=== PATIENT | male | born 1955 | race Caucasian/White ===

== ENCOUNTER 2021-02-24 00:45 | Inpatient (IN) ==
[2021-02-24] MEDS ORDERED: OPTIRAY 320 125ml IV ONE (01:22)
[2021-02-24 01:29] LABS: Basophils # (auto) 0.03 K/uL (0-0.2); Basophils % (auto) 0.2 %; Eosinophils # (auto) 0.22 K/uL (0-0.5); Eosinophils % (auto) 1.8 %; Hematocrit (blood only) 44.5 % (42-52); Hemoglobin 14.7 g/dL (14.0-18.0); Immature Granulocytes # (auto) 0.03 K/uL (0.00-0.02); Immature Granulocytes % (auto) 0.2 %; Lymphocytes # (auto) 1.65 K/uL (1.2-3.4); Lymphocytes % (auto) 13.7 %; Mean Corpuscular Hemoglobin 30.1 pg (25-34); Mean Platelet Volume 9.4 fL (7.4-10.4); Monocytes # (auto) 1.02 K/uL (0.11-0.59); Monocytes % (auto) 8.5 %; Neutrophils # (auto) 9.11 K/uL (1.4-6.5); Neutrophils % (auto) 75.6 %; Platelet Count 278 K/uL (130-400); RDW Standard Deviation 46.3 fL (36.4-46.3); Red Blood Count 4.89 M/uL (4.7-6.1); White Blood Count 12.06 K/uL (4.8-10.8)
[2021-02-24 01:42] LABS: Partial Thromboplastin Ratio 1.1; Partial Thromboplastin Time 29.1 Seconds (21.0-31.0); Prothrombin Time 9.9 Seconds (9.0-12.0)
[2021-02-24 01:46] LABS: Albumin Level 3.4 gm/dl (3.4-5.0); BUN Creatinine Ratio 18.4 (10-20); Est GFR (African American) 52.9 ml/min; Est GFR (Non-African American) 45.6 ml/min; Magnesium 2.2 mg/dl (1.8-2.4); Potassium 4.7 mmol/L (3.5-5.1)
[2021-02-24 01:55] LABS: Globulin 3.4 gm/dl (2.5-4.0); Total Protein 6.8 gm/dl (6.4-8.2); Troponin I 0.184 ng/ml (0-0.045)
[2021-02-24] MEDS ORDERED: ASPIRIN 300 MG SUPP PR ONE (02:24)
[2021-02-24] MEDS ORDERED: SODIUM CHLORIDE 0.9% 500 ML IV SCH (02:30)
[2021-02-24 03:15] LABS: Thyroid Stimulating Hormone 1.35 uIu/ml (0.300-4.500)
[2021-02-24] MEDS ORDERED: ALBUT/IPRATROP 3MG/0.5MG NEB 3 ML VIAL NEB STA ×2 (03:20→06:27)
--- NOTE | 2021-02-24 03:25 | History & Physical Report ---
Date of Service February 24, 2021 Assessment & Plan (1) Acute CVA (cerebrovascular accident): Plan: Left MCA ischemic stroke Patient not a candidate for TPA as per ER provider conversation with [facility] stroke specialist construction tech (Dr. Duong). HTN, elevated secondary to above hx medication noncompliance Past history ACEI intake as per records LUC status post surgery/CPAP noncompliance ARF, rhabdomyolysis secondary to immobility post fall GERD as per records ongoing tobacco abuse Medical telemetry Neurochecks Aspirin for secondary stroke prevention MRI brain, TTE for additional stroke work-up Neurology consult Re: CVA Permissive hypertension for now Baseline UA, monitor creatinine/CPK response to IVF Check lipid profile Initiate statin once rhabdomyolysis resolved Nicotine patch as needed PT OT eval DVT prophylaxis. Heparin subcu Full code as per family. Patient son requesting updates from providers. Mr. Sukhdev Nogueira, contact #[phone]. Text document was generated using farmaciamark[employer] voice recognition software. It may contain grammatical or spelling errors. Kindly contact undersigned for clarification of any documentation item in question. History of Present Illness Chief Complaint: Stroke as per records Primary Care Provider: NO PCP History obtained from patient, family, and records. Unable to obtain history from patient secondary to dysarthria/aphasia Medical history significant for HTN, hyperlipidemia, GERD, LUC status post surgery/CPAP noncompliance, ongoing tobacco abuse, medication noncompliance. Patient has not been to a family doctor or taking home medications for a number of years now as per family. Patient found by son at home around 11 PM last night on the floor with slurred speech, right facial droop and right side paralysis. Last time patient was known to be well was 8 AM, 02/22 when patient's son spoke to him over the phone. No concerns at that time as per family. No prior episodes as per family. Aspirin per rectum administered at the ER. Medical History as above Surgical History : Back surgery, ankle surgery, vasectomy, uvulopalatopharyngoplasty, vasectomy Family History : Stroke, heart disease, A. 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 Allergies Allergy/AdvReac Type Severity Reaction Status Date / Time No Known Allergies Allergy Verified 02/24/21 02:08 Home Medications Medication Instructions Recorded Confirmed Type naproxen sodium 220 mg tablet 220 - 440 mg PO DIRECTED PRN 02/24/21 02/24/21 History (Aleladi) Past Med/Surg History Social History Smoking Status: Current every day smoker Tobacco Type: Cigarettes Cigarettes Per Day: 10-20; Hx Alcohol Use: Yes Alcohol type: beer and hard liquor Hx Substance Use: No Preferred Language: [place] Islander Communication Ability: Impaired Financial Assistant Required: No Beliefs That Will Affect Care: None marital status: Single Current Living Situation: Alone Current Living Situation Comment: son sometimes stays with him Other Information That Helps Us Care for You: No Feels Safe at Home: Yes Safety Concerns: Feels Safe At This Time Assistive Devices: Glasses and Hearing Aid - Left Review of Systems Review of Systems: Could not be reliably obtained Physical Exam Physical Exam: GENERAL: uncomfortable, audible expiratory wheezes, restless, obese, aphasic, dysarthric, no respiratory distress SKIN: Normal color, warm HEENT: Alopecia, pink palpebral conjunctivae, no ptosis, right facial droop, dry buccal mucosa NECK : Supple, short neck, no tenderness CHEST : Decreased breath sounds, expiratory wheezes, no tenderness HEART : RRR, no obvious murmurs ABDOMEN: Some distention, nontender EXTREMITIES : Minimal LE swelling, no LE tenderness, no other conspicuous deformities noted NEUROLOGIC : Coherent, aphasic, right facial droop, dysarthric, right hemiplegia Results & Data Results & Data ([facility]) Vital Signs (Past 12 Hours) Vital Signs Temp Pulse Pulse Resp BP BP Pulse Ox 02/24/21 02:19 88 18 166/95 H 94 02/24/21 01:34 91 H 18 150/77 H 96 02/24/21 00:51 37.4 C 88 16 157/90 H 95 Laboratory Results Laboratory Results WBC 12.06 K/uL (4.8-10.8) H 02/24/21 01:17 RBC 4.89 M/uL (4.7-6.1) 02/24/21 01:17 Hgb 14.7 g/dL (14.0-18.0) 02/24/21 01:17 Hct 44.5 % (42-52) 02/24/21 01:17 MCV 91.0 fL (80-100) 02/24/21 01:17 MCH 30.1 pg (25-34) 02/24/21 01:17 MCHC 33.0 g/dL (32-36) 02/24/21 01:17 RDW Std Deviation 46.3 fL (36.4-46.3) 02/24/21 01:17 RDW Coeff of Serenity 14.0 % (11.5-14.5) 02/24/21 01:17 Plt Count 278 K/uL (130-400) 02/24/21 01:17 MPV 9.4 fL (7.4-10.4) 02/24/21 01:17 Immature Gran % (Auto) 0.2 % 02/24/21 01:17 Neut % (Auto) 75.6 % 02/24/21 01:17 Lymph % (Auto) 13.7 % 02/24/21 01:17 [place] % (Auto) 8.5 % 02/24/21 01:17 Eos % (Auto) 1.8 % 02/24/21 01:17 Baso % (Auto) 0.2 % 02/24/21 01:17 Neut # (Auto) 9.11 K/uL (1.4-6.5) H 02/24/21 01:17 Lymph # (Auto) 1.65 K/uL (1.2-3.4) 02/24/21 01:17 [place] # (Auto) 1.02 K/uL (0.11-0.59) H 02/24/21 01:17 Eos # (Auto) 0.22 K/uL (0-0.5) 02/24/21 01:17 Baso # (Auto) 0.03 K/uL (0-0.2) 02/24/21 01:17 Immature Gran # (Auto) 0.03 K/uL (0.00-0.02) H 02/24/21 01:17 PT 9.9 Seconds (9.0-12.0) 02/24/21 01:17 INR 1.0 (0.9-1.1) 02/24/21 01:17 APTT 29.1 Seconds (21.0-31.0) 02/24/21 01:17 PTT Ratio 1.1 02/24/21 01:17 Sodium 135 mmol/L (136-145) L 02/24/21 01:17 Potassium 4.7 mmol/L (3.5-5.1) 02/24/21 01:17 Chloride 108 mmol/L (98-107) H 02/24/21 01:17 Carbon Dioxide 25 mmol/L (21-32) 02/24/21 01:17 Anion Gap 2.0 (3-11) L 02/24/21 01:17 BUN 29 mg/dl (7-18) H 02/24/21 01:17 Creatinine 1.55 mg/dl (0.6-1.4) H 02/24/21 01:17 Est Cr Clr Drug Dosing 55.0 ml/min 02/24/21 01:17 Est GFR ( Amer) 52.9 ml/min 02/24/21 01:17 Est GFR (Non-Af Amer) 45.6 ml/min 02/24/21 01:17 BUN/Creatinine Ratio 18.4 (10-20) 02/24/21 01:17 Glucose 99 mg/dl (70-99) 02/24/21 01:17 Calcium 9.0 mg/dl (8.5-10.1) 02/24/21 01:17 Magnesium 2.2 mg/dl (1.8-2.4) 02/24/21 01:17 Total Bilirubin 1.0 mg/dl (0.2-1) 02/24/21 01:17 AST 41 U/L (15-37) H 02/24/21 01:17 ALT 29 U/L (12-78) 02/24/21 01:17 Alkaline Phosphatase 86 U/L (45-117) 02/24/21 01:17 Total Creatine Kinase 1577 U/L (39-308) H 02/24/21 01:17 Troponin I 0.184 ng/ml (0-0.045) H* 02/24/21 01:17 NT-Pro-B Natriuret Pep 460 pg/ml (0-900) 02/24/21 01:17 Total Protein 6.8 gm/dl (6.4-8.2) 02/24/21 01:17 Albumin 3.4 gm/dl (3.4-5.0) 02/24/21 01:17 Globulin 3.4 gm/dl (2.5-4.0) 02/24/21 01:17 Albumin/Globulin Ratio 1.0 (0.9-2) 02/24/21 01:17 TSH 1.350 uIu/ml (0.300-4.500) 02/24/21 01:17 Blood Type O Negative 02/24/21 01:17 Antibody Screen NEGATIVE 02/24/21 01:[address] head initial read Left temporal insular, frontal and parietal acute nonhemorrhagic infarct in the left middle cerebral artery vascular distribution. Asymmetric hyperdense left middle cerebral artery suspicious for thrombus. No acute intracranial hemorrhage or abnormal extra-axial fluid collection. Ventricles and sulci normal in size for age.No midline shift. No paranasal sinus air-fluid level. No fracture. CTA head initial read Filling defect from the proximal to distal M1 segment of the left middle cerebral artery and multiple proximal left middle cerebral artery trifurcation branches with partial distal runoff, consistent with a near complete occluding acute thrombus. Trace flow within the distal cervical through supraclinoid left internal carotid artery compatible with a critical near complete stenosis. Underlying atherosclerotic aortic plaque in the cavernous segment of the left internal carotid artery. Minimal flow in the A1 segment left anterior cerebral artery. Remainder of the left anterior cerebral artery is supplied through a patent anterior communicating artery. Patent left posterior commuting artery contributes to flow in the proximal supraclinoid and proximal M1 segment of the left middle cerebral artery. Atherosclerotic aortic plaque of the cavernous internal carotid artery with mod erate stenosis. Intact flow in the right anterior and middle cerebral arteries. Posterior circulation is unremarkable. No evidence for aneurysm or basilar malformation. CTA Neck initial read: Left carotid bulb plaque with critical near complete stenosis. String-like contrast material throughout the remainder of the cervical left internal carotid artery to the skull base. Mild to moderate plaque in the left common carotid artery. Plaque with moderate stenosis of the right carotid bulb with intact distal runoff. Mild atherosclerotic carotid plaque of the aortic arch. Patent bilateral vert ebral arteries without significant stenosis. Degenerative changes of the cervical spine. Chest x-ray as per my interpretation: Cardiomegaly, congestion EKG as per my interpretation : Rate 90, NSR, normal axis, T wave flattening inferior leads
[2021-02-24 04:11] LABS: Appearance Urine Clear (Clear); Bacteria Urine Automated Negative (Negative); Bilirubin Urine Negative (Negative); Blood Urine 1+ (Negative); Cast Urine Automated 0 /lpf (0-5); Color Urine Yellow; Glucose Urine UA Trace (Negative); Ketones Urine 1+ (Negative); Leukocyte Esterase Urine Negative (Negative); Nitrite Urine Negative (Negative); Protein Urine Trace (Negative); RBC Urine Automated 0-4 /hpf (0-4); Specific Gravity Urine > 1.045 (1.000-1.030); Urobilinogen Urine Negative (Negative)
[2021-02-24] MEDS: D5W AND LACTATED RINGERS 1,000 ML IV SCH ×2 (04:51→15:54)
[2021-02-24] MEDS ORDERED: XOPENEX/ATROVENT 1.25mg/0.5MG NEB COMBO NEB PRN (05:04)
[2021-02-24] MEDS ORDERED: IPRATROPIUM BROMIDE NEB SOLN 0.02% 2.5 ML VIAL INH PRN (05:04)
[2021-02-24] MEDS ORDERED: ACETAMINOPHEN 1,000 MG/100 ML VIAL IV PRN (05:04)
[2021-02-24] MEDS ORDERED: PROMETHAZINE HCL 12.5 MG in SODIUM CHLORIDE 0.9% 50 ML IV PRN (05:04)
[2021-02-24] MEDS ORDERED: PHARMACIST DISCHARGE MED REC CONSULT PRN (05:04)
[2021-02-24] MEDS ORDERED: LEVALBUTEROL 1.25MG/0.5ML NEB INH PRN (05:04)
--- NOTE | 2021-02-24 05:40 | Emergency Department Note ---
Impression & Plan Thrombotic stroke involving middle cerebral artery, Non-ST elevation MT (NSTEMI), Rhabdomyolysis Admit to the [facility] ED Provider Note NAME: KAVON POLO AGE: 66 SEX: M ARRIVES VIA: Ambulance INFORMANT: EMS; the patient's son ED PROVIDER(S): Katya Sorenson DO CHIEF COMPLAINT: Altered mental status PLAN: Disposition: Admit to the [facility] Condition: Good MEDICAL DECISION MAKING: This is a 66-year-old male patient with no significant past medical history who presents to the emergency department with strokelike symptoms with an unknown last known well time. The patient was found on the floor by his family. CT scan of the brain reveals evidence of a large MCA stroke on the left. This is left him with paralysis on the right and a right-sided facial droop. Patient has incomprehensible speech. Patient would not be a candidate for TPA/TNKase because of his time of presentation being greater than 24 hours from last known well time. I discussed the case with the telestroke neurologist at [facility] and they made multiple recommendations for treatment here at [facility]. Patient remained hemodynamically stable. The patient has an elevated total CPK consistent with rhabdomyolysis most likely from being on the floor for an extended period of time. He is being treated with IV crystalloid therapy. I discussed the case with the [facility] and they will evaluate for further management. Triage Nursing notes reviewed and agree with them. Additional history obtained from the patient's sons who are at the bedside Vital Signs: reviewed and unremarkable Differential diagnosis: Intracranial hemorrhage, hypoglycemia, ischemic stroke, ER treatment provided: IV normal saline Rectal aspirin Diagnostics interpreted by me: ECG: Normal sinus rhythm at [address] segment elevation or signs of ischemia. There is no ectopy. Cardiac Monitoring: Normal sinus rhythm at 78 Laboratory studies: See below Imaging studies: CT head: Left temporal insular, frontal and parietal acute nonhemorrhagic infarct in the left middle cerebral artery vascular distribution. Asymmetric hyperdense left middle cerebral artery suspicious for thrombus. No acute intracranial hemorrhage or abnormal extra-axial fluid collection. Ventricles and sulci normal in size for age. No midline shift. No paranasal sinus air-fluid level. No fracture. CTA head: Filling defect from the proximal to distal M1 segment of the left middle cerebral artery and multiple proximal left middle cerebral artery trifurcation branches with partial distal runoff, consistent with a near complete occluding acute thrombus. Trace flow within the distal cervical through supraclinoid left internal carotid artery compatible with a critical near complete stenosis. Underlying atherosclerotic aortic plaque in the cavernous segment of the left internal carotid artery. Minimal flow in the A1 segment left anterior cerebral artery. Remainder of the left anterior cerebral artery is supplied through a patent anterior communicating artery. Patent left posterior commuting artery contributes to flow in the proximal supraclinoid and proximal M1 segment of the left middle cerebral artery. Atherosclerotic aortic plaque of the cavernous internal carotid artery with moderate stenosis. Intact flow in the right anterior and middle cerebral arteries. Posterior circulation is unremarkable. No evidence for aneurysm or basilar malformation. CTA Neck: Left carotid bulb plaque with critical near complete stenosis. String-like contrast material throughout the remainder of the cervical left internal carotid artery to the skull base. Mild to moderate plaque in the left common carotid artery. Plaque with moderate stenosis of the right carotid bulb with intact distal runoff. Mild atherosclerotic carotid plaque of the aortic arch. Patent bilateral vertebral arteries without significant stenosis. Degenerative changes of the cervical spine HPI: 66/M arrives for evaluation of stroke symptoms. The patient was found on the floor this evening by his family. It appeared that he had urinated himself there and may have been there since sometime this morning as he was still in his pajamns. The family had last spoken with him greater than 24 hours ago. Patient has no specific past medical history. He does take Aleve for chronic back pain. The patient has had a previous spinal surgery ROS: See above HPI for pertinent positives & negatives. A total of 10 systems reviewed and were otherwise negative. PAST MEDICAL HISTORY:See Below PAST SURGICAL HISTORY:Spinal surgery FAMILY HISTORY:See Below SOCIAL HISTORY:The patient lives with one of his sons HOME MEDICATIONS:See Below ALLERGIES:See Below VITALS:See Below PHYSICAL EXAMINATION: HEENT: Head - normocephalic and atraumatic. Pupils are equal, round, and reactive but sluggishly reactive light. Extraocular eye muscles are intact and sclera are anicteric. Nose - moist nasal mucosa without discharge. Mouth - moist buccal mucosa. Oropharynx is nonerythematous and there is no tonsillar exudate or edema noted. Neck: Supple; no JVD, nuchal rigidity, cervical lymphadenopathy, or auscultated bruits. Heart: Regular rate and rhythm. There is a normal S1 and S2 with no murmurs, clicks, or gallops appreciated. Lungs: Clear to auscultation bilaterally with no wheezes, rales, or rhonchi. Abdomen: Soft, completely nontender, nondistended, with good bowel sounds. There are no palpable pulsatile masses or hepatosplenomegaly. There is no guarding, rigidity, or rebound noted. Extremities: No evidence of cyanosis, clubbing, or edema. There are easily palpable peripheral pulses. Neuro:The patient is awake but with significantly slurred speech. The right arm and right leg seem flaccid although the patient will withdraw the right lower extremity with noxious stimuli to the right foot. ED COURSE: The patient went directly to CT scan for CT of head and CTA head and neck from EMS. The patient was evaluated in room B1 on return from CAT scan A complete history and physical was performed. Much of the history is obtained from the patient's son who was at the bedside. Stroke evaluation was performed. An order was placed for continuous cardiac monitoring. Patient was in normal sinus rhythm at a rate of 88. The patient was started on a normal saline drip. A twelve-lead EKG was obtained. I reviewed the case with the [facility] telestroke neurologist. They did not believe that the patient met criteria for transfer to a tertiary care center. They did recommend the patient receive rectal aspirin and suggested that the patient blood pressure remain managed less than 200/100. They also suggested considering placing an NG tube for administering's oral statins. Recommended keeping the patient's magnesium level greater than 2. I discussed these recommendations with the admitting physician-Dr. Ray. I kept the patient's son abreast of the situation. I have personally spent greater than 65 minutes of critical care time in the direct management of this patient. This includes bedside care, interpretation of diagnostic studies, and testing, discussion with consultants, patient, and family members, and other required patient management activities. This 65 minutes is in excess of all separately billable procedures. Katya Sorenson DO Past Med/Surg History Social History Smoking Status: Current every day smoker Tobacco Type: Cigarettes Cigarettes Per Day: 10-20; Hx Alcohol Use: Yes Alcohol type: beer and hard liquor Hx Substance Use: No Preferred Language: Cymraes Communication Ability: Impaired Criminal Justice Social Worker Required: No Beliefs That Will Affect Care: None marital status: Single Current Living Situation: Alone Current Living Situation Comment: son sometimes stays with him Feels Safe at Home: Yes Assistive Devices: Glasses and Hearing Aid - Left Allergies Allergies Allergy/AdvReac Type Severity Reaction Status Date / Time No Known Allergies Allergy Verified 02/24/21 02:08 Home Meds Home Medications Medication Instructions Recorded Confirmed naproxen sodium 220 mg tablet 220 - 440 mg PO DIRECTED PRN 02/24/21 02/24/21 (Aleve) Results & Data (ED) Vital Signs Vital Signs - 24 hr 02/24/21 00:51 02/24/21 01:34 02/24/21 02:19 Temperature 37.4 C Temperature Source Oral Pulse Rate 88 Pulse Rate [Left Apical] 91 H 88 Respiratory Rate 16 18 18 Respiratory Effort / Characteristics Non-Labored Spontaneous Non-Labored Spontaneous Non-Labored Spontaneous Respiratory Depth Normal Normal Normal Respiratory Pattern Regular Regular Regular Blood Pressure 157/90 H Blood Pressure [Right Arm] 150/77 H 166/95 H Blood Pressure Mean 112 Blood Pressure Mean [Right Arm] 101 118 Blood Pressure Position Lying Blood Pressure Position [Right Arm] Lying Lying Pulse Oximetry 95 96 94 Oxygen Delivery Method Room Air Room Air Room Air Sepsis Recent Fever Within 48 Hours No Sepsis New/Unexplained Change in Mental Status N/A Sepsis Action Taken by Nursing No Action Required 02/24/21 03:00 Temperature Temperature Source Pulse Rate 99 H Pulse Rate [Left Apical] Respiratory Rate 18 Respiratory Effort / Characteristics Respiratory Depth Respiratory Pattern Blood Pressure Blood Pressure [Right Arm] Blood Pressure Mean Blood Pressure Mean [Right Arm] Blood Pressure Position Blood Pressure Position [Right Arm] Pulse Oximetry 94 Oxygen Delivery Method Room Air Sepsis Recent Fever Within 48 Hours Sepsis New/Unexplained Change in Mental Status Sepsis Action Taken by Nursing Laboratory Data Result diagrams: 02/24/21 01:17 02/24/21 01:17 Lab Results 02/24/21 02/24/21 02/24/21 Range/Units 01:17 01:17 01:17 WBC 12.06 H (4.8-10.8) K/uL RBC 4.89 (4.7-6.1) M/uL Hgb 14.7 (14.0-18.0) g/dL Hct 44.5 (42-52) % MCV 91.0 (80-100) fL MCH 30.1 (25-34) pg MCHC 33.0 (32-36) g/dL RDW Std Deviation 46.3 (36.4-46.3) fL RDW Coeff of Serenity 14.0 (11.5-14.5) % Plt Count 278 (130-400) K/uL MPV 9.4 (7.4-10.4) fL Immature Gran % (Auto) 0.2 % Neut % (Auto) 75.6 % Lymph % (Auto) 13.7 % [place] % (Auto) 8.5 % Eos % (Auto) 1.8 % Baso % (Auto) 0.2 % Neut # (Auto) 9.11 H (1.4-6.5) K/uL Lymph # (Auto) 1.65 (1.2-3.4) K/uL [place] # (Auto) 1.02 H (0.11-0.59) K/uL Eos # (Auto) 0.22 (0-0.5) K/uL Baso # (Auto) 0.03 (0-0.2) K/uL Immature Gran # (Auto) 0.03 H (0.00-0.02) K/uL PT 9.9 (9.0-12.0) Seconds INR 1.0 (0.9-1.1) APTT 29.1 (21.0-31.0) Seconds PTT Ratio 1.1 Sodium (136-145) mmol/L Potassium (3.5-5.1) mmol/L Chloride (98-107) mmol/L Carbon Dioxide (21-32) mmol/L Anion Gap (3-11) BUN (7-18) mg/dl Creatinine (0.6-1.4) mg/dl Est Cr Clr Drug Dosing ml/min Est GFR ( Amer) ml/min Est GFR (Non-Af Amer) ml/min BUN/Creatinine Ratio (10-20) Glucose (70-99) mg/dl Calcium (8.5-10.1) mg/dl Magnesium (1.8-2.4) mg/dl Total Bilirubin (0.2-1) mg/dl AST (15-37) U/L ALT (12-78) U/L Alkaline Phosphatase (45-117) U/L Total Creatine Kinase (39-308) U/L Troponin I (0-0.045) ng/ml NT-Pro-B Natriuret Pep (0-900) pg/ml Total Protein (6.4-8.2) gm/dl Albumin (3.4-5.0) gm/dl Globulin (2.5-4.0) gm/dl Albumin/Globulin Ratio (0.9-2) TSH (0.300-4.500) uIu/ml Blood Type O Negative Antibody Screen NEGATIVE 02/24/21 Range/Units 01:17 WBC (4.8-10.8) K/uL RBC (4.7-6.1) M/uL Hgb (14.0-18.0) g/dL Hct (42-52) % MCV (80-100) fL MCH (25-34) pg MCHC (32-36) g/dL RDW Std Deviation (36.4-46.3) fL RDW Coeff of Serenity (11.5-14.5) % Plt Count (130-400) K/uL MPV (7.4-10.4) fL Immature Gran % (Auto) % Neut % (Auto) % Lymph % (Auto) % [place] % (Auto) % Eos % (Auto) % Baso % (Auto) % Neut # (Auto) (1.4-6.5) K/uL Lymph # (Auto) (1.2-3.4) K/uL [place] # (Auto) (0.11-0.59) K/uL Eos # (Auto) (0-0.5) K/uL Baso # (Auto) (0-0.2) K/uL Immature Gran # (Auto) (0.00-0.02) K/uL PT (9.0-12.0) Seconds INR (0.9-1.1) APTT (21.0-31.0) Seconds PTT Ratio Sodium 135 L (136-145) mmol/L Potassium 4.7 (3.5-5.1) mmol/L Chloride 108 H (98-107) mmol/L Carbon Dioxide 25 (21-32) mmol/L Anion Gap 2.0 L (3-11) BUN 29 H (7-18) mg/dl Creatinine 1.55 H (0.6-1.4) mg/dl Est Cr Clr Drug Dosing 55.0 ml/min Est GFR ( Amer) 52.9 ml/min Est GFR (Non-Af Amer) 45.6 ml/min BUN/Creatinine Ratio 18.4 (10-20) Glucose 99 (70-99) mg/dl Calcium 9.0 (8.5-10.1) mg/dl Magnesium 2.2 (1.8-2.4) mg/dl Total Bilirubin 1.0 (0.2-1) mg/dl AST 41 H (15-37) U/L ALT 29 (12-78) U/L Alkaline Phosphatase 86 (45-117) U/L Total Creatine Kinase 1577 H (39-308) U/L Troponin I 0.184 H* (0-0.045) ng/ml NT-Pro-B Natriuret Pep 460 (0-900) pg/ml Total Protein 6.8 (6.4-8.2) gm/dl Albumin 3.4 (3.4-5.0) gm/dl Globulin 3.4 (2.5-4.0) gm/dl Albumin/Globulin Ratio 1.0 (0.9-2) TSH 1.350 (0.300-4.500) uIu/ml Blood Type Antibody Screen Administered Medications Discontinued Medications Albuterol (Albut/Ipratrop 3mg/0.5mg Neb 3 Ml Vial) 3 ml NEB NOW STA Stop: 02/24/21 03:21 Last Admin: 02/24/21 04:09 Dose: 3 ml Documented by: [id number] Albuterol (Albut/Ipratrop 3mg/0.5mg Neb 3 Ml Vial) 3 ml NEB NOW STA Stop: 02/24/21 06:28 Last Admin: 02/24/21 10:48 Dose: Not Given Documented by: [id number] Aspirin (Aspirin 300 Mg Supp) 600 mg NH ONE ONE Stop: 02/24/21 02:25 Last Admin: 02/24/21 03:44 Dose: 600 mg Documented by: [id number] Heparin Sodium (Porcine) (Heparin Sod 5,000 Unit/0.5 Ml Vial) 5,000 units SQ Q8 MUKUL Stop: 03/26/21 05:59 Last Admin: 02/24/21 06:23 Dose: 5,000 units Documented by: [id number] Sodium Chloride (Nss) 500 mls @ 75 mls/hr IV .[id number] MUKUL Stop: 03/26/21 02:29 Last Infusion: 02/24/21 04:34 Dose: 0 mls/hr Documented by: [id number] Admin: 02/24/21 02:51 Dose: 125 mls/hr Documented by: [id number] Dextrose/Lactated Ringer's (D5w And Lactated Ringers) 1,000 mls @ 75 mls/hr IV .[id number] MUKUL Stop: 03/26/21 04:14 Last Admin: 02/24/21 15:54 Dose: 75 mls/hr Documented by: [id number] Infusion: 02/24/21 15:54 Dose: 75 mls/hr Documented by: [id number] Admin: 02/24/21 04:51 Dose: 75 mls/hr Documented by: [id number] Methylprednisolone 40 mg/ (Syringe) 0.64 mls @ 1.5 mls/min IV NOW STA Stop: 02/24/21 06:29 Last Admin: 02/24/21 15:54 Dose: Not Given Documented by: [id number] Ioversol (Optiray 320 125ml) 120 ml IV ONCE ONE Stop: 02/24/21 01:23 Last Admin: 02/24/21 01:23 Dose: 120 ml Documented by: [id number] Ipratropium [place] (Ipratropium [place] Neb Soln 0.02% 2.5 Ml Vial) 0.5 mg INH Q4H PRN PRN Reason: SOB/WHEEZING Stop: 03/26/21 05:03 Last Admin: 02/24/21 10:48 Dose: 0.5 mg Documented by: [id number] Levalbuterol HCl (Levalbuterol 1.25mg/0.5ml Neb) 1.25 mg INH Q4H PRN PRN Reason: SOB/WHEEZING Stop: 03/26/21 05:03 Last Admin: 02/24/21 10:48 Dose: 1.25 mg Documented by: [id number] Discharge Plan Visit Data Chief Complaint: Stroke/CVA Symptoms Stated Complaint: STROKE ED Provider: Katya Sorenson Discharge Problem: Thrombotic stroke involving middle cerebral artery, Non-ST elevation MT (NSTEMI), Rhabdomyolysis Patient Disposition: Admitted As Inpatient Discharge Instructions Interventions: ED Discharge Assessment Last Done: 02/24/21 04:48
[2021-02-24] MEDS ORDERED: HEPARIN SOD 5,000 UNIT/0.5 ML VIAL SQ SCH (06:00)
[2021-02-24] MEDS ORDERED: methylPREDNISolone 40 MG in SYRINGE 0 ML IV STA (06:28)
[2021-02-24 07:12] LABS: Base Excess ABG -0.8 mEq/L (-9-1.8); HCO3 ABG 24 mmol/L (19-24); PCO2 ABG 39 mmHg (35-46); PO2 ABG 67 mmHg (80-95)
[2021-02-24 07:13] LABS: Allen Test Pos (Pos)
--- NOTE | 2021-02-24 08:05 | XRay Report ---
XR chest 1V portable, XR chest 1V portable CLINICAL HISTORY: low o2 TECHNIQUE: Single frontal radiograph of the chest was obtained. Comparison: Comparison is made to chest one view 02/24/2021 at 0156 hours and 0611 hours FINDINGS: 0156 hours: No lines and tubes are seen. Cardiomegaly is noted. Prominence and cephalization of the vasculature i s seen. No evidence of pleural effusion or pneumothorax. 0611 hours: No significant interval change. IMPRESSION: Cardiomegaly and mild pulmonary edema. Lungs are underinflated without evidence of airspace opacities . ACT 112: Negative or not required by law. Electronically signed by: Mc Schwartz M.D. 02/24/2021 8:04 AM
--- NOTE | 2021-02-24 08:51 | CT Scan Report ---
CT head/brain wo con CLINICAL HISTORY: 66 years-old Male with Stroke Like Symptoms. Acute strokelike symptoms TECHNIQUE: Multiple axial CT images of the head were obtained without contrast. A dose lowering tech nique was utilized adhering to the principles of ALARA. COMPARISON: CTA head and neck of same day FINDINGS: No acute intracranial hemorrhage, midline shift, intracranial mass, hydrocephalus, or abnormal extra- axial collection. Left MCA thrombus. Ill-defined hypodensity of the left MCA territory involving the frontal and temporal lobes, lentiform nucleus, operculum and insular ribbon. Patchy white matter hypo densities suggest chronic microvascular ischemic disease. The calvarium is intact. The paranasal sinuses, mastoid air cells, and middle ear cavities are clear . IMPRESSION: Left MCA thrombus with moderate sized acute left MCA infarct. ACT 112: Negative or not required by law. The above report was generated using voice recognition software. It may contain grammatical, syntax o r spelling errors. Electronically signed by: Dl Todd M.D. 02/24/2021 8:50 AM
--- NOTE | 2021-02-24 09:29 | CT Scan Report ---
CT angio head w con, CT angio neck with con CLINICAL HISTORY: Stroke Like Symptoms TECHNIQUE: CT angiography of the head and neck was performed following intravenous administration of iodinated contrast. Automated dose lowering techniques and/or adjustment according to patient size we re utilized for this examination. Comparison: None available at the time of this dictation. FINDINGS: CTA Neck: A 3 vessel aortic arch is shown. There is no significant atherosclerotic plaque in the aor tic arch or the origins of the innominate, left common carotid, and left subclavian arteries. There is no atherosclerotic plaque at the origins of the vertebral arteries. The common carotid, external c arotid, cervical segments of the internal carotid arteries, and the cervical segments of the vertebra l arteries are patent. There is no hemodynamically significant diameter stenosis or dissection prese nt. Incidental note is made of retropharyngeal course of the internal carotid arteries. There is left carotid bulb plaque with critical near complete stenosis and a highly diminutive left internal carot id artery. Moderate plaque is seen in the right carotid bulb without evidence of hemodynamically sign ificant stenosis. The vertebral arteries are codominant. Rotatory subluxation of L1-L2 is noted. CTA Head: The anterior and posterior cerebral circulations are patent. There is abrupt cut off of th e left middle cerebral artery and M1 with hypoperfusion of the left MCA territory. Left A1 is nearly nonopacified, the left anterior cerebral artery is likely supplied from the right. Atherosclerotic pl aque is seen most prominent at the supraclinoid internal carotid arteries. IMPRESSION: 1. Near occlusive complete thrombus of M1 on the left compatible with prior PET/CT findings. 2. 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 3. Nearly nonopacified left A1, the left anterior cerebral artery is likely supplied from the right. Assessment of stenosis of the internal carotid arteries is based on NASCET criteria. ACT 112: Negative or not required by law. Electronically signed by: Mc Schwartz M.D. 02/24/2021 9:28 AM
--- NOTE | 2021-02-24 12:43 | Critical Care Consultation ---
Date of Consultation February 24, 2021 Assessment & Plan (1) Acute CVA (cerebrovascular accident): (2) Obesity: (3) Hypertension: (4) JULIA (acute kidney injury): (5) Elevated troponin: (6) Elevated CPK: --Acute CVA Systolic blood pressure less than 160 greater than 140 Aspiration precautions Continue with neurochecks Continue to monitor respiratory status Follow-up 2D Follow neurology recommendations Keep patient n.p.o. Head CT: Near occlusive complete thrombus of M1, Critical, near complete stenosis of the distal cervical through supraclinoid left internal carotid artery. -- JULIA Unknown baseline creatinine Follow-up urine lites Monitor BUN/creatinine Avoid nephrotoxic medications Strict ins and outs --Morbid obesity with probable LUC/OHS The patient was significantly hypoxic while sleeping with the patient on CPAP Plan: Continue with neurochecks Follow-up urine lites Given the significant stenosis patient is very high likelihood of developing cerebral edema Patient is to be transferred to a tertiary care center. Monitor in the ICU till he is transferred Please note the above document was generated using voice recognition software. It may contain grammatical, syntax or spelling errors.Any formal questions or concerns about the content, text or information contained within the body of this dictation should be directly addressed to the provider for clarification. History of Present Illness Attending Physician: Renetta Grace MD History of Present Illness 66-year-old male was brought in by the family as he was found to be on the floor at home by his son with slurred speech and facial droop. Patient was last known well around 8 AM on 02/22/2021. Patient had a CTA head and neck done in the ED which showed significant stenosis of the internal carotid artery along with MCA Hospitalist spoke with neurologist who recommended patient to be transferred to a neuro ICU for very close monitoring given the high degree of stenosis At the time of examination in the ICU patient saturation was 97% on 8 L oxygen mask I went down to 3 L Patient unfortunately has aphasia. He is able to move his left upper and left lower extremity without any issues He is not able to move the right upper and right lower extremity He is able to answer and nod his head but I am not sure if he is able to comprehend everything I ask History obtained from previous records and ER chart Allergies Allergy/AdvReac Type Severity Reaction Status Date / Time No Known Allergies Allergy Verified 02/24/21 02:08 Patient History Social History Smoking Status: Current every day smoker Tobacco Type: Cigarettes Cigarettes Per Day: 10-20; Hx Alcohol Use: Yes Alcohol type: beer and hard liquor Hx Substance Use: No Preferred Language: Irish Communication Ability: Impaired Pharmacy Clinical Specialist Required: No Beliefs That Will Affect Care: None marital status: Single Current Living Situation: Alone Current Living Situation Comment: son sometimes stays with him Other Information That Helps Us Care for You: No Feels Safe at Home: Yes Safety Concerns: Feels Safe At This Time Assistive Devices: Glasses and Hearing Aid - Left Review of Systems Review of Systems: Unobtainable due to mental health condition Physical Exam Physical Exam: Constitutional: No acute distress HEENT: EOMI, PERRLA Respiratory system: Good air entry bilaterally, no wheeze, no rhonchi, positive crackles bilateral lower lobes CVS: S1-S2 positive, no murmurs or gallops Abdomen: Soft, nontender, nondistended, positive bowel sounds x4 Extremities: +2 pulses bilaterally radialis/ dorsalis pedis, no cyanosis, no edema, right upper and right lower extremity paresis, right foot deformed with surgical scar on the dorsal surface Neuro: Awake and alert. Aphasic. Right-sided hemiparesis Psych: Unable to assess G/U: No Cornell Skin: no rashes, warm and dry Lymphatic: no cervical or axillary lymphadenopathy Results & Data Results & Data ([facility]) Vital Signs (Past 12 Hours) Vital Signs Temp Pulse Pulse Resp BP BP Pulse Ox 02/24/21 11:19 36.6 C 79 22 160/90 H 94 02/24/21 10:49 71 18 92 02/24/21 06:15 78 17 152/97 H 92 02/24/21 05:15 88 15 145/97 H 93 02/24/21 05:14 02/24/21 04:30 82 16 94 02/24/21 04:11 89 21 95 02/24/21 04:00 81 19 152/86 H 95 02/24/21 03:00 99 H 18 94 02/24/21 02:19 88 18 166/95 H 94 02/24/21 01:34 91 H 18 150/77 H 96 02/24/21 00:51 37.4 C 88 16 157/90 H 95 Pulse Ox 02/24/21 11:19 02/24/21 10:49 02/24/21 06:15 02/24/21 05:15 02/24/21 05:14 92 02/24/21 04:30 02/24/21 04:11 02/24/21 04:00 02/24/21 03:00 02/24/21 02:19 02/24/21 01:34 02/24/21 00:51 02/24/21 01:17 02/24/21 01:17 Coding Level of Care Code 75069 Inpt Consult Level 5 Diagnoses Acute CVA (cerebrovascular accident) I63.9 Obesity E66.9 Hypertension I10 JULIA (acute kidney injury) N17.9 Elevated troponin R77.8 Elevated CPK R74.8
[2021-02-24] MEDS ORDERED: hydrALAZINE HCL 20 MG/ML VIAL IV PRN (12:46)
--- NOTE | 2021-02-24 12:50 | Communication Note ---
Date of Service: February 24, 2021 Obey is 66 years old right-handed and has been noncompliant with medical visits quite a number of years. He is known to have hypertension he is over nourished his obstructive sleep apnea however he does not use CPAP, has GERD, dyslipidemia, probable prediabetes although this is not documented, and has bilateral pes cavus foot deformities of uncertain cause without any documented diagnosis of peripheral neuropathy of familial type The takes no active medications at home according to what we can establish We are unaware of any drug allergies Family history at this point is noncontributory largely unavailable Review of systems is unobtainable from the patient He was found down at home 11:00 last night having last apparently been seen well at about 8 in the morning yesterday. Is brought to the hospital stroke team was alerted and was not felt to be a TPA candidate. Initial CT scan of the brain showed what appeared to be a localized left middle cerebral artery infarction. CT angiography studies were not done until this morning and knees reveal evidence for a long very high-grade stenosis near occlusion of the left internal carotid artery within the skull extending to the left middle cerebral artery origin and there is a positive MCA sign on CT scan of the brain Clinically he is densely paretic makes no discernible speech, has had an eye deviation to the left, will move his right lower extremity to noxious stimuli and minimally move the right upper extremity, has no significant abnormalities on the left and is somnolent but can be aroused although he has periods of apnea that are according to the emergency room nurse and his current ICU nurse, increasing in frequency Vital signs include temperature of 36 6 O2 saturation 94 on nasal cannula at 2 L. He has bilateral pes cavus deformities, areflexia at the ankles and knees, normal reflexes in the upper extremities with some briskness on the right, trace positive Evy sign on the right and an extensor toe sign on the right Is significant weakness of the right arm of an upper motor neuron type but appears to be able to withdraw the right leg to noxious stimuli Sensory examination cannot be performed Basic laboratory studies show mildly elevated white count elevated CPK due to rhabdomyolysis and suggestive of the. Of being "down" of several hours of least but no abnormal glucose This man has a large left middle cerebral artery infarction with a functional total occlusion of the left internal carotid and proximal middle cerebral artery with very sluggish flow throughout the system relying on collateral vessels Currently he is becoming more somnolent having periods of apnea and he is at very high risk for developing major left hemispheric ischemic/cytotoxic edema with herniation and his prognosis is extremely poor both quality of survival and survival itself Apparently the family wants very aggressive management and we do not have the capacity at this institution provide the ultimate treatment that might be required here i.e. craniectomy and decompression order we offer specialized post stroke care I have suggested that transfer to a tertiary institution be considered and currently this avenue is being investigated. From a neurologic point of view all I have to offer would be adding Plavix to his aspirin if he can take this orally, monitor him carefully for respiratory function, allow some permissive hypertension, and to get our intensive care unit staff involved in the event that he is not transferred to a specialized stroke unit I will be checking back by computer and a bedside visit if he is still here tomorrow Edouard Bernstein MD The above note was dictated utilizing voice recognition technology and may have punctuation errors, spelling errors, pronoun usage errors, and syntax errors
[2021-02-24] MEDS ORDERED: STROKE PATIENT DISCHARGE STA (13:41)
--- NOTE | 2021-02-24 18:30 | Discharge Summary ---
Date of Service February 24, 2021 Admission HPI Per Admitting Provider History obtained from patient, family, and records. Unable to obtain history from patient secondary to dysarthria/aphasia Medical history significant for HTN, hyperlipidemia, GERD, LUC status post surgery/CPAP noncompliance, ongoing tobacco abuse, medication noncompliance. Patient has not been to a family doctor or taking home medications for a number of years now as per family. Patient found by son at home around 11 PM last night on the floor with slurred speech, right facial droop and right side paralysis. Last time patient was known to be well was 8 AM, 02/22 when patient's son spoke to him over the phone. No concerns at that time as per family. No prior episodes as per family. Aspirin per rectum administered at the ER. Medical History as above Surgical History : Back surgery, ankle surgery, vasectomy, uvulopalatopharyngoplasty, vasectomy Family History : Stroke, heart disease, A. 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 Admission Exam Per Admitting Provider GENERAL: uncomfortable, audible expiratory wheezes, restless, obese, aphasic, dysarthric, no respiratory distress SKIN: Normal color, warm HEENT: Alopecia, pink palpebral conjunctivae, no ptosis, right facial droop, dry buccal mucosa NECK : Supple, short neck, no tenderness CHEST : Decreased breath sounds, expiratory wheezes, no tenderness HEART : RRR, no obvious murmurs ABDOMEN: Some distention, nontender EXTREMITIES : Minimal LE swelling, no LE tenderness, no other conspicuous deformities noted NEUROLOGIC : Coherent, aphasic, right facial droop, dysarthric, right hemiplegia Principal Diagnosis Left MCA stroke Discharge Exam GENERAL: Restless, obese, aphasic, dysarthric, no respiratory distress. On 6 L nasal cannula. HEENT: No pallor, no icterus. Pupils equal, round and reactive to light. Oral mucosa moist. NECK: No JVD, no neck masses. HEART: S1 and S2 heard. Regular rate and rhythm. No murmur, no gallop. RESPIRATORY SYSTEM: Normal AP diameter. No accessory muscle use. No wheezing, no crackles. ABDOMEN: Soft, bowel sounds present, nontender, no distention. CENTRAL NERVOUS SYSTEM: Aphasic, mumbling, unable to cooperate, seen moving left extremities, not moving right extremities. EXTREMITIES: No edema, no erythema seen. Bilateral pes cavus deformities. Urinary catheter in situ with yellow urine collection. Discharge Data Allergies Allergy/AdvReac Type Severity Reaction Status Date / Time No Known Allergies Allergy Verified 02/24/21 02:08 Consultations 02/24/21 02:28 ED Decision to Admit Stat 02/24/21 05:04 Consult Neurology Routine 02/24/21 13:28 Burn CD for patient Stat Ordered Studies 02/24/21 00:48 CT angio head w con Urgent CT angio neck with con Urgent CT head/brain wo con Urgent 02/24/21 05:04 MR brain wo con Routine Hospital Course (1) Acute CVA (cerebrovascular accident): 66-year-old gentleman with past medical history significant for hypertension, hyperlipidemia, GERD, LUC status post surgery/CPAP noncompliance, ongoing tobacco abuse, medication noncompliance, and remote history of visit to family doctor brought to our ED 02/23 after he was found by son at home around 11 PM on 02/23 on the floor with slurred speech and right facial droop and r ight-sided paralysis. Last time patient was known to be well was 8 AM on 02/22 when patient's son spoke to him over the phone. No concerns at that time per family. No prior episodes of stroke per family. In the ED patient was found to have left MCA stroke with right-sided paralysis. Patient not a candidate for TPA as per ER provider conversation with [facility] stroke specialist on-call [Dr. Duong]. Patient was managed in the ICU with permissive hypertension, aspiration precaution, frequent neuro checks and continuous monitoring of respiratory status. Patient kept NPO. Neurology evaluated the patient and recommended transfer to tertiary center due to large left middle cerebral artery infarction with a functional total occlusion of the left internal carotid and proximal middle cerebral artery with very sluggish flow throughout the system relying on collateral vessels. Per neurology, since patient is becoming more somnolent having periods of apnea and hence he is at very high risk of developing major left hemispheric ischemic/cytotoxic edema with herniation and our center is not equipped to handle the situation. Neurology recommended adding Plavix to aspirin if he can take this orally. Over the phone discussion with patient's son, he stated that patient would have wanted everything to be done and agrees with the transfer process as recommended by neurology. Transfer line to [facility] was called, discussion with various subspecialties including Dr. Belle-Brandon and and Dr. Rivero -patient accepted and transfer process completed. Patient got bed and is to get discharged by today evening. Total Time Total Time Spent Total Time Spent (In Minutes): 50 Discharge Plan Discharge Items Patient Disposition: Transfer Acute Care Hospital Reason For Visit: CVA Discharge Diagnosis: Left MCA Stroke Activity: As commented below Activity Comment: bed bound until further eval Non-emergency contact: Primary Care Provider Call non-emergency contact if: you have any medication questions and your symptoms worsen Follow-up/Referrals: PCP,NO [Primary Care Provider] - Dietitian Info: NPO Diet: Nothing by Mouth Addtl Attending Provider Instructions: Current Inpatient Medications Aspirin (Aspirin 81 Mg Ectab) 81 mg PO QAM [facility] Stop: 03/27/21 08:59 Heparin Sodium (Porcine) (Heparin Sod 5,000 Unit/0.5 Ml Vial) 5,000 units SQ Q8 MUKUL Stop: 03/26/21 05:59 Last Admin: 02/24/21 06:23 Dose: 5,000 units Documented by: Hydralazine HCl (Hydralazine Hcl 20 Mg/Ml Vial) 10 mg IV Q4 PRN PRN Reason: SBP> 160, DBP>110 Stop: 03/26/21 12:45 Dextrose/Lactated Ringer's (D5w And Lactated Ringers) 1,000 mls @ 75 mls/hr IV .[id number] MUKUL Stop: 03/26/21 04:14 Last Admin: 02/24/21 04:51 Dose: 75 mls/hr Documented by: Promethazine HCl 12.5 mg/ (Sodium Chloride) 50.5 mls @ 202 mls/hr IV Q6H PRN PRN Reason: Nausea And Vomiting Stop: 03/26/21 05:03 Acetaminophen (Ofirmev) 1,000 mg in 100 mls @ 400 mls/hr IV Q8H PRN PRN Reason: pain/fever Stop: 02/27/21 05:03 Ipratropium [place] (Ipratropium [place] Neb Soln 0.02% 2.5 Ml Vial) 0.5 mg INH Q4H PRN PRN Reason: SOB/WHEEZING Stop: 03/26/21 05:03 Last Admin: 02/24/21 10:48 Dose: 0.5 mg Documented by: Levalbuterol HCl (Levalbuterol 1.25mg/0.5ml Neb) 1.25 mg INH Q4H PRN PRN Reason: SOB/WHEEZING Stop: 03/26/21 05:03 Last Admin: 02/24/21 10:48 Dose: 1.25 mg Documented by: Miscellaneous Information (Pharmacist Discharge Med Rec Consult) 1 ea N/A UD PRN PRN Reason: Consult Stop: 03/26/21 05:03 Pending Studies at Discharge: No Stand-Alone Forms: [facility] Skilled Items Patient informed of condition?: Yes DNR: No Discharge Level of Care: Other Communicable Disease: No Discharge Prognosis: Deteriorating Lines: Peripheral IV Urinary Catheter: Yes Medications and DC Order Prescriptions: Discontinued naproxen sodium [Aleve] 220 mg Tablet 220 - 440 mg PO DIRECTED PRN (Reason: Pain) RF: 0 Discharge Orders: Discharge Order (Routine); Ordered 02/24/21 Ordered By: Renetta Grace Admission Data Admit Date/Time: 02/24/21 03:27 Attending Provider: Renetta Grace Admit Provider: Cyrus Cifuentes Primary Care Provider: PCP,NO Other Providers: Cyrus Cifuentes ; Zulma Ignacio ; Edouard Bernstein ; Zulma Hardin ; Ned Burrell ; [facility]
[2021-02-24] MEDS ORDERED: PNEUMOCOCCAL POLYSACCHARIDES 25 MCG/0.5 ML VIAL/SYR IM ONE (21:00)
[2021-02-24] MEDS ORDERED: INFLUENZA VACCINE HIGH DOSE PF 65+ 0.7 ML SYR IM ONE (21:00)
[2021-02-25] MEDS ORDERED: ASPIRIN 81 MG ECTAB PO SCH (09:00)
--- NOTE | 2021-02-25 09:45 | Electrocardiogram Report ---
Test Reason : Blood Pressure : / mmHG Vent. Rate : 091 BPM Atrial Rate : 091 BPM P-R Int : 152 ms QRS Dur : 094 ms QT Int : 346 ms P-R-T Axes : 048 012 002 degrees QTc Int : 425 ms Poor data quality, interpretation may be adversely affected Normal sinus rhythm Normal ECG No previous ECGs available Confirmed by Naeem Alejandro ([id number]) on 02/25/2021 9:45:19 AM Referred By: REFERRED SELF Confirmed By:Naeem Alejandro
== END 2021-02-24 20:00 | disposition short-term general hospital (02) | DRG 65 ==
LOC: ED 00:45 → MERGE 03:27 → EDINP 03:27 → 1E 04:48